=== PATIENT | female | born 1935 | race Caucasian/White ===

== ENCOUNTER 2018-01-31 07:05 | Day surgery (SDC) | payer MEDICARE, BC, OTHER ==
[2018-01-30 09:46] VITALS: BMI 35.6
[~2018-01-31 07:05] MED LIST: LACTATED RINGERS 1,000 ML IV SCH
[2018-01-31] MEDS ORDERED: LIDOCAINE 1% 20 ML VIAL (10MG/ML) FOR IV START INTRADERMA ONE (07:54)
[2018-01-31 07:56] VITALS: RESP 16; TEMP 98
[2018-01-31 07:58] LABS: Glucose,Whole Blood 128 mg/dL (75-99)
[2018-01-31] MEDS ORDERED: LIDOCAINE 1% INJ 10MG/ML (20 ML MDV) ONE (08:07)
[2018-01-31] MEDS ORDERED: PROPOFOL 10 MG/ML 20 ML VIAL IV ONE (08:07)
--- NOTE | 2018-01-31 08:42 | P.PCN ---
Date of Procedure: 01/31/18 Procedure(s) Performed: Brief history: Patient is a pleasant 82-year-old white female, scheduled for an elective upper endoscopy as well as colonoscopy as a part of evaluation of gastric esophageal reflux disease and personal history of colon cancer diagnosed in 1995. Colonoscopy was in 2015 in [place] and had a small polyp. Procedure performed: Esophagogastroduodenoscopy with biopsy Colonoscopy and snare polypectomy Preoperative diagnosis: GERD History of colon cancer diagnosed in 1995 status post partial colectomy, last colonoscopy in 2014 Anesthesia: MAC Procedure: After informed consent was obtained from the patient was brought into the endoscopy unit and IV sedation was administered by anesthesia under continuous monitoring. Initially upper endoscopy was done. The Olympus GF 160 video endoscope was inserted inserted into the mouth and esophagus intubated without any difficulty and was gradually advanced into the stomach and duodenum and carefully examined. The bulb and second part of the duodenum appeared normal. The scope was then withdrawn into the stomach adequately insufflated with air and upon careful examination the antrum and body had mild gastritis and biopsies were done from this area. The, cardia and fundus appeared normal. The scope was then withdrawn into the esophagus. The GE junction was located at 40 cm to the incisors. It appeared regular with no erythema erosions or ulcerations. Rest of the esophagus appeared normal. There were patchy areas of the white plaques in the midesophagus and biopsies were done to rule out Vandana esophagitis Patient tolerated the procedure well. At this time the patient continued to remain sedation. Initial digital rectal examination was normal. Olympus CF 160 video colonoscope was then inserted into the rectum and gradually advanced to the cecum without any difficulty. Careful examination was performed as the scope was gradually being withdrawn. The prep was excellent. There was a 1-1.5 cm broad-based polyp on the appendiceal orifice which was removed by snare polypectomy. Following the polypectomy there was some friable mucosa noted in the appendiceal orifice that appeared cauterized. Unsure if complete polypectomy was performed. The cecum, ascending colon, transverse colon, descending colon, sigmoid colon and rectum appeared normal. Retroflexion was performed in the rectum and no lesions were noted. Patient tolerated the procedure well. Impression: 1. Upper endoscopy revealed mild antral gastritis and whitish plaques in the esophagus rule out Vandana esophagitis 2. Colonoscopy revealed 1-1.5 cm broad-based polyp on the appendiceal orifice status post piecemeal snare polypectomy ( unsure if complete polypectomy done) Recommendations: Findings of this examination were discussed with the patient as well as her family. She was advised to follow with the biopsy results. She'll be seen in the office next week.
[2018-01-31 09:55] VITALS: BP 132/76; PULSE 80
== END 2018-01-31 09:50 | disposition home or self-care (01) ==
LOC: ORWHC2ENDO 07:05
PROVIDERS: ATTEND Internal Medicine Gastroenterology
DX: Z12.11 Encounter for screening for malignant neoplasm of colon (principal); Z85.038 Personal history of other malignant neoplasm of large intestine; Z86.010 Personal history of colon polyps; K29.50 Unspecified chronic gastritis without bleeding; K21.0 Gastro-esophageal reflux disease with esophagitis; D12.0 Benign neoplasm of cecum; Z87.891 Personal history of nicotine dependence; H91.90 Unspecified hearing loss, unspecified ear; Z79.82 Long term (current) use of aspirin; Z79.899 Other long term (current) drug therapy; Z88.5 Allergy status to narcotic agent; Z88.0 Allergy status to penicillin; Z91.09 Other allergy status, other than to drugs and biological substances
CPT/HCPCS: 88305; 45385; 43239; J2001; J2704

== ENCOUNTER → 2018-05-18 | Day surgery (SDC) | payer MEDICARE, BC, OTHER ==
[2018-05-15 16:34] VITALS: BMI 37.1
[~2018-05-18] MED LIST changes: +LIDOCAINE 1% 20 ML VIAL (10MG/ML) FOR IV START INTRADERMA ONE; +LIDOCAINE 1% INJ 10MG/ML (20 ML MDV) ONE; +PROPOFOL 10 MG/ML 20 ML VIAL IV ONE
[2018-05-18 07:23] VITALS: TEMP 97.6
[2018-05-18 07:37] LABS: Glucose,Whole Blood 133 mg/dL (75-99)
--- NOTE | 2018-05-18 08:12 | P.PCN ---
Date of Procedure: 05/18/18 Procedure(s) Performed: BRIEF HISTORY: Patient is a 82-year-old pleasant white female, scheduled for an elective colonoscopy as a part of follow-up of cecal polyp that was noted on a routine surveillance colonoscopy in January 2018. She was diagnosed with colon cancer in 1985 and status post partial colon resection at that time. Last colonoscopy February 2080 showed a 2 cm raised broad-based polyp on the appendiceal orifice that was removed in a piecemeal fashion and the biopsy showed adenoma with high-grade dysplasia involving the cauterized margin. She was hence referred to see a surgeon at [facility]. Following this consultation she was advised to have a follow-up surveillance colonoscopy rather than surgery because of the likelihood of complete endoscopic polypectomy. She is hence scheduled for repeat colonoscopy today. PROCEDURE PERFORMED: Colonoscopy with snare polypectomy, hot biopsy and argon plasma coagulation. PREOPERATIVE DIAGNOSIS: Follow-up cecal polyp with high-grade dysplasia. IV sedation per Anesthesia. PROCEDURE: After informed consent was obtained, the patient, was brought into the endoscopy unit. IV sedation was administered by Anesthesia under continuous monitoring. Digital rectal examination was normal. Initially the Olympus CF- 160 flexible video colonoscope was then inserted in the rectum, gradually advanced into the cecum without any difficulty. Careful examination was performed as the scope was gradually being withdrawn. Ileocecal valve and the appendiceal orifice were visualized and appeared normal. Prep was excellent. In the base of the cecum encircling the appendiceal orifice there was a residual 1-1.5 cm flat polyp that was partially removed by snare polypectomy. Following this I was not able to remove the rest of the polyp and hence following multiple biopsies, biopsies were performed. Following this there was still some residual polyp identified and this was coagulated using argon plasma .the rest of the mucosa of the cecum, ascending colon, transverse colon, descending colon, sigmoid colon, and rectum appeared normal. Retroflexion was performed in the rectum and no lesions were seen. The patient tolerated the procedure well. IMPRESSION: 1-1.5 cm flat polyp involving the base of the cecum/appendiceal orifice status post partial snare polypectomy followed by hot biopsy and argon plasma coagulation Rest of the colon appeared normal RECOMMENDATIONS: Findings of this examination were discussed with the patient as well as a family. She was advised to follow with the biopsy results. She' ll be seen in office in a week from now..
[2018-05-18 08:15] VITALS: RESP 18
[2018-05-18 08:56] VITALS: BP 132/70; PULSE 80
== END ==
LOC: ORWHC2ENDO 06:36
PROVIDERS: ATTEND Internal Medicine Gastroenterology
DX: Z12.11 Encounter for screening for malignant neoplasm of colon (principal); C18.0 Malignant neoplasm of cecum; D12.0 Benign neoplasm of cecum; Z85.038 Personal history of other malignant neoplasm of large intestine; Z90.49 Acquired absence of other specified parts of digestive tract; Z86.010 Personal history of colon polyps; J44.9 Chronic obstructive pulmonary disease, unspecified; E11.9 Type 2 diabetes mellitus without complications; Z79.4 Long term (current) use of insulin; K21.9 Gastro-esophageal reflux disease without esophagitis; H73.90 Unspecified disorder of tympanic membrane, unspecified ear; Z79.82 Long term (current) use of aspirin; Z79.51 Long term (current) use of inhaled steroids; Z79.899 Other long term (current) drug therapy; Z88.5 Allergy status to narcotic agent; Z88.1 Allergy status to other antibiotic agents; Z88.0 Allergy status to penicillin; Z91.09 Other allergy status, other than to drugs and biological substances
CPT/HCPCS: 88305; 45385; J2001; J2704; 45384; 45388

== ENCOUNTER 2021-09-17 06:01 | Day surgery (SDC) | payer MEDICARE, BC, OTHER ==
[2021-09-15 15:43] VITALS: BMI 33.8
[~2021-09-17 06:01] MED LIST changes: -LIDOCAINE 1% 20 ML VIAL (10MG/ML) FOR IV START INTRADERMA ONE; -LIDOCAINE 1% INJ 10MG/ML (20 ML MDV) ONE; -PROPOFOL 10 MG/ML 20 ML VIAL IV ONE
[2021-09-17 06:39] VITALS: TEMP 97.5
[2021-09-17] MEDS ORDERED: PROPOFOL 10 MG/ML 20 ML VIAL IV ONE (06:47)
[2021-09-17] MEDS ORDERED: LIDOCAINE 2% INJ 20 MG/ML (2 ML VIAL) ONE (06:47)
[2021-09-17 06:54] LABS: Glucose,Whole Blood 97 mg/dL (75-99)
--- NOTE | 2021-09-17 07:11 | P.PCN ---
Date of Procedure: 09/17/21 Procedure(s) Performed: Brief history: Patient is a pleasant 86-year-old white female scheduled for an elective upper endoscopy as well as colonoscopy as a part of evaluation of GERD and surveillance of colon cancer. 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 Procedure performed: Esophagogastroduodenoscopy with biopsy Colonoscopy with snare polypectomy. Preoperative diagnosis: GERD History of colon cancer Anesthesia: MAC Procedure: After informed consent was obtained from the patient was brought into the endoscopy unit and IV sedation was administered by anesthesia under continuous monitoring. Initially upper endoscopy was done. The Olympus GF 160 video endoscope was inserted inserted into the mouth and esophagus intubated without any difficulty and was gradually advanced into the stomach and duodenum and carefully examined. The bulb and second part of the duodenum appeared normal. The scope was then withdrawn into the stomach adequately insufflated with air and upon careful examination the antrum and body and mild gastritis and biopsi es were done from this area. The, cardia and fundus appeared normal. The scope was then withdrawn into the esophagus. The GE junction was located at 40 cm to the incisors. Small sliding type hiatal hernia noted. It appeared regular with no erythema erosions or ulcerations. Rest of the esophagus appeared normal. Patient tolerated the procedure well. At this time the patient continued to remain sedation. Initial digital rectal examination was normal. Olympus CF 160 video colonoscope was then inserted into the rectum and gradually advanced to the cecum without any difficulty. Evidence of cecectomy noted. At the area of the sutures there was a 5 mm polyp that was removed by snare polypectomy. Ileocecal valve was visualized that appeared normal. Mucosa of, ascending colon transverse colon, descending colon, sigmoid colon and rectum appeared normal. Retroflexion was performed in the rectum and no lesions were noted. Patient tolerated the procedure well. Impression: 1. Upper endoscopy revealed mild antral gastritis and small hiatal hernia 2. Colonoscopy revealed 5 mm polyp at the cecum status post snare polypectomy. Recommendations: Findings of this examination were discussed with the patient as well as a family. She was advised to follow with the biopsy results. If the biopsies adenoma she can have a repeat colonoscopy in 3 years. Continue with Prilosec 20 mg daily and follow antireflux measures.
[2021-09-17 07:31] VITALS: BP 121/73; PULSE 67; RESP 18
== END 2021-09-17 08:00 | disposition home or self-care (01) ==
LOC: ORWHC2ENDO 06:01
PROVIDERS: ATTEND Internal Medicine Gastroenterology
DX: K29.50 Unspecified chronic gastritis without bleeding (principal); K44.9 Diaphragmatic hernia without obstruction or gangrene; K21.9 Gastro-esophageal reflux disease without esophagitis; Z85.048 Personal history of other malignant neoplasm of rectum, rectosigmoid junction, and anus
CPT/HCPCS: 45385; 43239; 88305; J2704; J2001

== ENCOUNTER → 2023-10-10 | Outpatient (CLI) | payer MEDICARE, BC, OTHER ==
[2023-10-10 14:24] LABS: Basophils # (A) 0.03 X 10*3/uL (0.00-0.10); Basophils % (A) 0.4 %; Eosinophils % (A) 1.4 %; HCT 39.6 % (37.2-46.3); HGB 12.4 g/dL (12.0-15.0); MCH 29.4 pg (27.0-32.0); MCHC 31.3 g/dL (32.0-37.0); MCV 93.8 FL (80.0-97.0); Mean Platelet Volume 10.2 FL (9.5-12.2); Monocytes # (A) 1.09 X 10*3/uL (0.20-1.00); Monocytes % (A) 15.7 %; NRBC Per 100 WBC 0 X 10*3/uL (0.00-0.01); Neutrophils # (A) 4.08 X 10*3/uL (1.80-7.70); Neutrophils % (A) 58.6 %; Platelet Count 196 X 10*3/uL (140-440); RBC 4.22 X 10*6/uL (4.10-5.20); RDW 13.9 % (11.5-14.5); WBC 6.96 X 10*3/uL (4.50-10.00)
[2023-10-10 14:40] LABS: BUN/Creat Ratio 13.88 Ratio (12.00-20.00); Blood Urea Nitrogen 11.1 mg/dL (9.0-27.0); Calcium 8.8 mg/dL (8.7-10.3); Carbon Dioxide 26.2 mmol/L (21.6-31.8); Chloride 96 mmol/L (96-109); Glucose 145 mg/dL (70-110); Potassium 4.3 mmol/L (3.5-5.5); Sodium 135 mmol/L (135-145)
== END | disposition home or self-care (01) ==
LOC: LABPAT 10:50
PROVIDERS: ATTEND Orthopaedic Surgery Hand Surgery
DX: Z01.812 Encounter for preprocedural laboratory examination (principal); G56.02 Carpal tunnel syndrome, left upper limb
CPT/HCPCS: 36415; 80048; 85025

== ENCOUNTER 2023-10-11 07:42 | Day surgery (SDC) | payer MEDICARE, BC, OTHER ==
--- NOTE | 2023-10-09 09:10 | P.HPOR ---
History of Present Illness H&P Date: 10/09/23 Subjective: This is a 88 year old female that presents today for follow up evaluation regarding a several year history of progressively worsening left hand paresthesias in the thumb, index, middle and ring fingers. The patient has tried bracing with little relief. The patient denies any inciting event or neck pain. She states her left side is worse than her right but has symptoms on both sides. Physical Examination: LUE: AIN/PIN/Radial/Ulnar/Median motor intact. Radial/Ulnar/Median SILT. 2+/4 Radial/Ulnar pulses palpated. 5/5 APB, 5/5 FDI. Negative Finkelsteins, negative CMC grind, positive Durkan's compression. RUE: AIN/PIN/Radial/Ulnar/Median motor intact. Radial/Ulnar/Median SILT. 2+/4 Radial/Ulnar pulses palpated. 5/5 APB, 5/5 FDI. Negative Finkelsteins, negative CMC grind, positive Durkan's compression. Negative Tinels at cubital tunnel. EMG/NCV: EMG/NCV performed in October of 2022 demonstrates moderate right carpal tunnel syndrome, moderate right cubital tunnel syndrome, mild left carpal tunnel syndrome. Impression: 1.) Left carpal tunnel syndrome 2.) Right carpal tunnel syndrome Plan: Diagnosis and treatment options were discussed with the patient. The patient has failed conservative treatment and would like to pursue a left endoscopic vs open carpal tunnel release. Risks and benefits of surgery including bleeding, infection, damage to surrounding tissue, need for further surgery, possible need to convert to open procedure, residual numbness were discussed and the patient wished to go forward with surgery. CC: Sarita Alfredo MD -Joe Mcdonough DO Orthopedic Hand/Upper Extremity Surgeon Past Medical History Past Medical History: Asthma, Cancer, COPD, Diabetes Mellitus, Eye Disorder, GERD/Reflux, Hearing Disorder / Deafness, Skin Disorder Additional Past Medical History / Comment(s): HX COLON CA 1998, DAMAGED EARDRUMS, varicose veins, skin cancer, diet control diabetic, rosacea, recent colon polyps in 2017 History of Any Multi-Drug Resistant Organisms: None Reported Past Surgical History: Bowel Resection, Breast Surgery, Hernia Repair Additional Past Surgical History / Comment(s): 11 abdominal HERNIAS REPAIRED in one surgery. HX BREAST REDUCTION. jostin cataracts, EGD, colonoscopy Past Anesthesia/Blood Transfusion Reactions: Previous Problems w/ Anesthesia, Family History of Problems w/ Anesthesia Additional Past Anesthesia/Blood Transfusion Reaction / Comment(s): PATIENT HAD ELEVATED BLOOD PRESSURE during breast reduction "OVER 200.". DAUGHTER CODED DURING ANESTHESIA-cause unknown Past Psychological History: No Psychological Hx Reported Past Alcohol Use History: None Reported Additional Past Alcohol Use History / Comment(s): quit smoking age 30, started smoking age 20, > 1 PPD Past Drug Use History: None Reported - Past Family History Father Family Medical History: Cancer Additional Family Medical History / Comment(s): colon Daughter(s) Family Medical History: Cancer Additional Family Medical History / Comment(s): colon Medications and Allergies Home Medications Medication Instructions Recorded Confirmed Type Citalopram Hydrobromide [CeleXA] 40 mg PO DAILY 02/11/14 09/15/21 History Esomeprazole Magnesium [NexIUM] 40 mg PO BID 02/11/14 09/15/21 History Levalbuterol Nebulized [Xopenex 1.25 mg INHALATION BID PRN 02/11/14 09/15/21 History Nebulized] Simvastatin [Zocor] 40 mg PO HS 02/11/14 09/15/21 History Aspirin [Adult Low Dose Aspirin EC] 81 mg PO DAILY 01/30/18 09/15/21 History Calcium Carbonate [Calcium] 600 mg PO BID 01/30/18 09/15/21 History Cholecalciferol [Vitamin D3] 1,000 unit PO DAILY 01/30/18 09/15/21 History Fish Oil/Dha/Epa [Fish Oil 1,200 1 each PO BID 01/30/18 09/15/21 History mg Fish Oil] Fluticasone Propionate [Flovent 2 puff INHALATION QAM PRN 01/30/18 09/15/21 History Hfa 220 mcg] L.acidoph,Paracasei, B.lactis 1 each PO DAILY 01/30/18 09/15/21 History [Probiotic] Magnesium Hydroxide [Milk of 4 tbsp PO HS 01/30/18 09/15/21 History Magnesia] Multivitamins, Thera [Multivitamin 1 tab PO DAILY 01/30/18 09/15/21 History (formulary)] Turmeric Root Extract [Turmeric] 500 mg PO DAILY 01/30/18 09/15/21 History Ubidecarenone [Co Q-10] 100 mg PO DAILY 01/30/18 09/15/21 History Vitamin B Complex 1 each PO DAILY 01/30/18 09/15/21 History Biotin 10,000 mcg PO DAILY 09/15/21 09/15/21 History Budesonide [Pulmicort] 0.5 mg INHALATION BID PRN 09/15/21 09/15/21 History Cetirizine HCl [Zyrtec] 10 mg PO DAILY 09/15/21 09/15/21 History Dulaglutide [Trulicity] 0.75 mg SQ MO 09/15/21 09/15/21 History metFORMIN HCL [Glucophage] 500 mg PO BID 09/15/21 09/15/21 History Allergies Allergy/AdvReac Type Severity Reaction Status Date / Time cephalexin monohydrate Allergy Unknown Verified 09/17/21 06:23 [From Keflex] codeine Allergy Unknown Verified 09/17/21 06:23 morphine Allergy Unknown Verified 09/17/21 06:23 Penicillins Allergy Unknown Verified 09/17/21 06:23 BANDAIDS Allergy RED, RAW Uncoded 09/17/21 06:23 SKIN Physical Examination Osteopathic Statement: *. No significant issues noted on an osteopathic structural exam other than those noted in the History and Physical/Consult.
[2023-10-09 16:15] VITALS: BMI 34.9
[~2023-10-11 07:42] MED LIST changes: -LACTATED RINGERS 1,000 ML IV SCH; +Pre Op ABX Message 1 EACH MISC MISCELLANE ONE
[2023-10-11] MEDS ORDERED: fentaNYL (PF) 50 MCG/ML 2 ML AMP IVP PRN (08:03)
[2023-10-11] MEDS ORDERED: HYDROmorphone 0.5 MG/0.5 ML SYRINGE IVP PRN (08:03)
[2023-10-11] MEDS ORDERED: MIDAZOLAM 2 MG/2 ML VIAL IV PRN (08:03)
[2023-10-11] MEDS ORDERED: LIDOCAINE 1% (10MG/ML) FOR IV START INTRADERMA PRN (08:03)
[2023-10-11 08:10] VITALS: RESP 18; TEMP 97
[2023-10-11] MEDS: BUPIVACAINE (PF) 0.5% 30 ML VIAL SQ ONE ×2 (08:24→08:57)
[2023-10-11] MEDS: LIDOCAINE 2% INJ 20 MG/ML SQ ONE ×2 (08:24→08:57)
[2023-10-11] MEDS: LACTATED RINGERS 1,000 ML IV SCH (08:32)
[2023-10-11] MEDS: ONDANSETRON 4 MG/2 ML VIAL IVP ONE (08:33)
[2023-10-11] MEDS: DEXAMETHASONE SOD PHOSPHATE 4 MG/ML 1 ML VIAL IV ONE (08:33)
[2023-10-11] MEDS: IV FLUID CONTINUATION 1,000 ML IV ONE (08:34)
[2023-10-11 08:41] LABS: Glucose,Whole Blood 121 mg/dL (70-110)
[2023-10-11] MEDS ORDERED: KETOROLAC 15 MG/ML 1 ML VIAL ONE (08:48)
[2023-10-11] MEDS ORDERED: LIDOCAINE 1% INJ 10MG/ML (20 ML MDV) ONE (08:48)
[2023-10-11] MEDS ORDERED: PROPOFOL 10 MG/ML 20 ML VIAL IV ONE (08:48)
--- NOTE | 2023-10-11 09:19 | P.OP ---
Date of Procedure: 10/11/23 Preoperative Diagnosis: Left carpal tunnel syndrome Postoperative Diagnosis: Left carpal tunnel syndrome Procedure(s) Performed: Left endoscopic carpal tunnel release Anesthesia: MAC Surgeon: Joe Mcdonough Web Content Manager #1: Cy Daniel Estimated Blood Loss (ml): 0 Pathology: none sent Condition: stable Disposition: PACU Description of Procedure: This is a 88 year old female who presents today for a left endoscopic carpal tunnel release after having failed conservative treatment in the past. Risks and benefits of surgery were discussed with the patient including bleeding, damage to surrounding tissue, infection, need to convert to open procedure, need for further surgery as well as risks of anesthesia including pulmonary embolism and even and the patient wished to proceed with surgical intervention. The patients was seen in the pre-operative area by myself. Consent and H&P were completed and updated. The correct extremity was marked in the pre-operative area by myself and all other questions were answered. Operative Narrative: The patient was brought to the operating room by the department of anesthesia. They remained on the portable stretcher and a rolling hand table was brought to the side of the operative extremity. Pre-operative time out was performed indicating the correct patient, procedure and laterality. All in the room agreed. The patient was then drifted off to sleep by the department of anesthesia. MAC anesthesia was utilized and a 50:50 mixture of 1% Lidocaine and 0.5% bupivacaine was injected into the subcutaneous tissues of the palmar skin, 8ccs total. A nonsterile tourniquet was then applied to the operative extremity and the left upper extremity was then prepped and draped in normal sterile fashion. The operative extremity was the exsanguinated with an esmarch bandage and the tourniquet was inflated to 250mmHg. 15 blade scalpel was utilized to make a transverse incision on the palmar skin just ulnar to the palmaris longus tendon at the level of the distal wrist crease. Ragnell retractor was then placed radially and blunt dissection was performed to reveal the distal forearm fascia. This was lifted with fine Piter pick ups and Littler tenotomy scissors were then used to open the forearm fascia transversely and a double skin hook was then placed. Hamate finder was placed into the carpal tunnel and then sequential sized dilators were inserted followed by the synovial elevator to separate the flexor tenosynovium from the undersurface of the transverse carpal ligament and a washboard texture was felt. The MicroAire endoscopic carpal tunnel release system gun was the then inserted into the carpal tunnel hugging the deep portion of the transverse carpal ligament in line with the base of the ring finger. Transverse fibers of the ligament were directly visualized. Pressure was applied on the palm to reveal the distal extent of the transverse carpal ligament. The blade was then deployed and the distal half of the transverse carpal ligament was released. The scope was then brought distal again and remaining transverse fibers were incised with the blade. The proximal half of the transverse carpal ligament was then divided and again the scope was advanced distal and remaining transverse fibers were incised with the blade. The radial and ulnar leaflets were directly visualized and mobile consistent with complete release. Tenotomy scissors were then utilize d to release the remaining distal forearm fascia under direct visualization taking care to preserve the palmar cutaneous branch of the median nerve. Skin closure was performed with interrupted 4-0 Monocryl suture followed by steri strips. Sterile dressing was applied consisting 4x4s, Webril, and an paris bandage. Tourniquet was let down and the hand immediately was well perfused. The patient was then woken by the department of anesthesia and transferred to PACU in stable condition. Cy RUST was present for the case in its entirety and assisted in major portions of the case and protection of vital neurovascular structures. Joe Mcdonough D.O. Orthopedic Hand/Upper Extremity Surgeon
[2023-10-11 09:32] VITALS: BP 95/78; PULSE 81
== END 2023-10-11 10:17 | disposition home or self-care (01) ==
LOC: OR 07:42
PROVIDERS: ATTEND Orthopaedic Surgery Hand Surgery
DX: G56.03 Carpal tunnel syndrome, bilateral upper limbs (principal); J44.9 Chronic obstructive pulmonary disease, unspecified; E11.69 Type 2 diabetes mellitus with other specified complication; E78.5 Hyperlipidemia, unspecified; K21.9 Gastro-esophageal reflux disease without esophagitis; Z88.0 Allergy status to penicillin; Z88.1 Allergy status to other antibiotic agents; Z88.5 Allergy status to narcotic agent; Z91.09 Other allergy status, other than to drugs and biological substances; Z88.8 Allergy status to other drugs, medicaments and biological substances; Z91.040 Latex allergy status; Z87.891 Personal history of nicotine dependence; Z79.82 Long term (current) use of aspirin; Z79.899 Other long term (current) drug therapy; Z79.84 Long term (current) use of oral hypoglycemic drugs; Z79.85 Long-term (current) use of injectable non-insulin antidiabetic drugs
CPT/HCPCS: 29848; J2001 ×2; J1100; J2405; J1885; J2704; J0665

== ENCOUNTER 2023-12-06 10:55 | Day surgery (SDC) | payer MEDICARE, BC, OTHER ==
[2023-12-06] MEDS ORDERED: BUPIVACAINE (PF) 0.5% 30 ML VIAL ONE (12:30)
[2023-12-06] MEDS ORDERED: LACTATED RINGERS 1,000 ML BAG ONE (12:30)
[2023-12-06] MEDS ORDERED: PROPOFOL 10 MG/ML 20 ML VIAL IV ONE (12:30)
[2023-12-06] MEDS ORDERED: fentaNYL (PF) 50 MCG/ML 2 ML AMP ONE (12:30)
[2023-12-06] MEDS ORDERED: LIDOCAINE 2% (PF) 20 MG/ML 5 ML VIAL ONE (12:30)
== END 2023-12-06 13:30 ==
LOC: OR 10:55
PROVIDERS: ATTEND Orthopaedic Surgery Hand Surgery
DX: G56.01 Carpal tunnel syndrome, right upper limb (principal); K21.9 Gastro-esophageal reflux disease without esophagitis; E11.9 Type 2 diabetes mellitus without complications; J45.909 Unspecified asthma, uncomplicated; Z88.0 Allergy status to penicillin; Z88.5 Allergy status to narcotic agent; Z88.1 Allergy status to other antibiotic agents